=== PATIENT | female | born 1990 | race Caucasian/White ===

== ENCOUNTER 2022-01-29 18:51 | Emergency (ER) | payer OTHER ==
[2022-01-29] MEDS ORDERED: IBUPROFEN 600 MG TABLET PO STA (19:55)
[2022-01-29] MEDS ORDERED: SODIUM CHLORIDE 0.9% 1,000 ML IV STA (19:55)
[2022-01-29] MEDS ORDERED: ONDANSETRON 4 MG/2 ML VIAL IVP STA (19:55)
--- NOTE | 2022-01-29 19:57 | ED Physician Documentation ---
History of Present Illness - Stated complaint Stated Complaint: BODY ACHES/VOMIT/HEADACHE - Chief complaint Chief Complaint: General - Additonal information Additional information: 31-year-old female presents emergency department for evaluation of generalized myalgias, nausea vomiting. Symptoms began yesterday evening. She has been unable to find any comfort today. She has been vomiting but denies diarrhea. No abdominal pain dysuria urgency or frequency. Doubts as she has Nexplanon in place and her has a vasectomy. She is fully vaccinated for COVID-19 as well as boosted. Her home COVID test were negative. Review of Systems Constitutional: reports: Chills, Myalgias, Fatigue Eyes: reports: Reviewed and negative Ears: reports: Reviewed and negative Nose: reports: Reviewed and negative Throat: reports: Reviewed and negative GI: reports: Nausea, Vomiting. denies: Abdominal Pain, Constipation, Diarrhea : reports: Reviewed and negative Skin: reports: Reviewed and negative Musculoskeletal: reports: Reviewed and negative Neurologic: reports: Reviewed and negative PD PAST MEDICAL HISTORY - Past Medical History Cardiovascular: None Respiratory: None Endocrine/Autoimmune: None GI: GERD ARTIST SCIENTIFIC: None : None HEENT: None Psych: None Musculoskeletal: None Derm: None - Past Surgical History Past Surgical History: No - Present Medications Home Medications: Ambulatory Orders Medication Instructions Recorded Confirmed Mirtazapine 15 mg PO HS 01/29/22 01/29/22 Ondansetron Odt [Zofran Odt] 4 mg TL Q6H PRN #10 tablet 01/29/22 - Allergies Allergies/Adverse Reactions: Allergies Allergy/AdvReac Type Severity Reaction Status Date / Time No Known Drug Allergies Allergy Verified 01/29/22 18:56 - Social History Does the pt smoke?: Yes Smoking Status: Current every day smoker Does the pt drink ETOH?: No Does the pt have substance abuse?: No - Immunizations Immunizations are current?: No PD ED PE NORMAL - General General: Alert and oriented X 3, No acute distress - HEENT HEENT: PERRL - Neck Neck: Supple, no meningeal sign, No adenopathy - Cardiac Cardiac: RRR, No murmur - Respiratory Respiratory: No respiratory distress, Clear bilaterally - Abdomen Abdomen: Normal bowel sounds, Soft, Non tender - Back Back: No CVA TTP, No spinal TTP - Derm Derm: Normal color, Warm and dry, No rash - Extremities Extremities: No deformity, No tenderness to palpate, Normal ROM s pain - Neuro Neuro: Alert and oriented X 3, 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 Eye Opening: Spontaneous Motor: Obeys Commands Verbal: Oriented GCS Score: 15 Results - Vitals Vitals: Vital Signs - 24 hr 01/29/22 18:57 Temperature 37.4 C Heart Rate 94 Respiratory 18 Rate Blood Pressure 108/63 O2 Saturation 98 Oxygen O2 Source Room air - Labs Labs: Laboratory Tests 01/29/22 20:22 Urine Color YELLOW Urine Clarity CLEAR Urine pH 6.0 Ur Specific Sunshine >=1.030 H Urine Protein NEGATIVE Urine Glucose (UA) NEGATIVE Urine Ketones >=80 H Urine Occult Blood SMALL H Urine Nitrite NEGATIVE Urine Bilirubin NEGATIVE Urine Urobilinogen 0.2 (NORMAL) Ur Leukocyte Esterase NEGATIVE Urine RBC 6-10 H Urine WBC 0-3 Ur Squamous Epith Cells MOD Squamous H Urine Bacteria Few Ur Microscopic Review INDICATED Urine Culture Comments NOT INDICATED Urine HCG, Qual NEGATIVE PD MEDICAL DECISION MAKING - ED course Complexity details: reviewed results, re-evaluated patient, considered differential, d/w patient, d/w family ED course: 31-year-old female presents emergency department for evaluation of general myalgias nausea vomiting and some diarrhea. She tested negative for COVID at home. Our test is pending. Clinically she appears rather well without fever. Unremarkable abdominal exam. No dysuria urgency or frequency. She is not . Here in the emergency department she was given some ibuprofen IV fluids and Zofran with good improvement in symptoms. I suspect she has a viral etiology and will discharge her with a limited prescription for Zofran as well as recommendation for Tylenol and ibuprofen at home. Patient is to return to the emergency department with worsening symptoms Departure - Departure Disposition: 01 Home, Self Care Clinical Impression: Gastroenteritis Condition: Stable Record reviewed to determine appropriate education?: Yes Instructions: ED Gastroenteritis Viral Prescriptions: Ondansetron Odt [Zofran Odt] 4 mg TL Q6H PRN #10 tablet PRN Reason: Nausea / Vomiting Comments: [place] you are seen today in the emergency department for generalized body aches as well as nausea vomiting and some diarrhea. The body aches are called myalgias and they are often seen in viral illnesses such as gastroenteritis. There is no specific treatment that makes this better simply time. I sent a prescription for Zofran to the [facility] in [place]. Over the next 24 hours I recommend frequent sips of clear liquids. For the body aches I recommend you take 600 mg of ibuprofen or 500 mg of Tylenol every 4-6 hours. If you find that your symptoms are not improving over the next 48 to 72 hours, you get excessively dehydrated or have uncontrolled vomiting please return immediately to the ER for reevaluation.
[2022-01-29 20:25] LABS: BILIRUBIN,URINE NEGATIVE (NEGATIVE); GLUCOSE, URINE (UA) NEGATIVE (NEGATIVE); KETONES,URINE (UA) >=80 mg/dL (NEGATIVE); LEUKOCYTE ESTERASE, URINE NEGATIVE (NEGATIVE); NITRITE,URINE NEGATIVE (NEGATIVE); OCCULT BLOOD,URINE SMALL (NEGATIVE); PROTEIN,URINE NEGATIVE (NEGATIVE); UROBILINOGEN,URINE 0.2 (NORMAL) E.U./dL (NORMAL)
[2022-01-29 20:35] LABS: CLARITY,URINE CLEAR (CLEAR); HCG UR QUAL NEGATIVE
[2022-01-29 20:49] LABS: WBC,URINE 0-3 /HPF (0-5)
[2022-01-29 20:50] LABS: BACTERIA,URINE Few /HPF (None Seen); SQUAMOUS EPITHELIAL CELL,UR MOD Squamous (<= Few)
[2022-01-29] MEDS ORDERED: oxyCODONE 5 MG TABLET PO STA (20:50)
[2022-01-29] MEDS ORDERED: HYDROmorphone 1 MG/ML CARPUJECT IVP STA (21:02)
[2022-01-29 21:29] VITALS: BP 106/63
== END 2022-01-29 21:33 | disposition home or self-care (01) ==
LOC: ED 18:51
DX: U07.1 COVID-19 (principal); K52.9 Noninfective gastroenteritis and colitis, unspecified; F17.200 Nicotine dependence, unspecified, uncomplicated
CPT/HCPCS: 81001; 81025; 87635; 96374; 96375; 99283; A9270; J1170; 81003; 87086